=== PATIENT | male | born 1960 | race Caucasian/White ===

== ENCOUNTER 2024-06-07 14:05 | Inpatient (IN) | payer MEDICARE ==
[2024-06-07 14:44] LABS: BASOPHILS PERCENT AUTO 0.2 % (0.2-1.2); EOSINOPHILS PERCENT AUTO 0.1 % (0.0-4.0); HEMATOCRIT 49.8 % (40.0-52.0); HEMOGLOBIN 17.9 g/dL (14.0-18.0); IMMATURE GRAN ABSOLUTE AUTO 0.07 x10^3/uL (0.00-0.07); LYMPHOCYTES ABSOLUTE AUTO 1.2 x10^3/uL (1.0-4.8); LYMPHOCYTES PERCENT AUTO 7.1 % (25.0-50.0); MEAN CORPUSCULAR HGB CONC 35.9 g/dL (32.0-36.0); MEAN CORPUSCULAR VOLUME 91.9 fL (78.0-93.0); MONOCYTES ABSOLUTE AUTO 0.9 x10^3/uL (0.0-0.8); MONOCYTES PERCENT AUTO 5.8 % (2.0-11.0); NEUTROPHILS PERCENT AUTO 86.4 % (50.0-80.0); PLATELET COUNT,PLT 254 x10^3/uL (130-400); RED BLOOD CELL COUNT 5.42 x10^6/uL (4.5-6.0); WHITE BLOOD CELL COUNT,WBC 16.3 x10^3/uL (4.0-10.0)
[2024-06-07 14:46] LABS: APPEARANCE,URINE CLEAR (CLEAR); BILIRUBIN,URINE NEGATIVE (NEGATIVE); COLOR,URINE YELLOW (YELLOW); GLUCOSE,URINE NEGATIVE (NEGATIVE); KETONES,URINE NEGATIVE (NEGATIVE); LEUKOCYTE ESTERASE,URINE NEGATIVE (NEGATIVE); NITRITE,URINE NEGATIVE (NEGATIVE); OCCULT BLOOD,URINE TRACE-LYSED (NEGATIVE); PROTEIN,URINE NEGATIVE (NEGATIVE); UROBILINOGEN,URINE 0.2 EU/dL (0.2)
[2024-06-07 14:47] LABS: BACTERIA,URINE RARE /HPF (NOT SEEN); MUCUS,URINE NOT SEEN /LPF (NOT SEEN); RBC,URINE 0-5 /HPF (NOT SEEN); SQUAMOUS EPITHELIAL CELLS,UR NOT SEEN /HPF (NOT SEEN); WBC,URINE 0-5 /HPF (NOT SEEN)
[2024-06-07 14:57] LABS: A/G RATIO 1.11; ALANINE AMINOTRANSFERASE,ALT 61 U/L (16-63); ALBUMIN 4.1 g/dL (3.4-5.0); ALKALINE PHOSPHATASE 90 U/L (46-116); ASPARTATE AMNIOTRANSFERASE,AST 36 U/L (15-37); BLOOD UREA NITROGEN,BUN 16 mg/dL (7-18); C-REACTIVE PROTEIN 2.19 mg/dL (<=0.50); CALCIUM 9.9 mg/dL (8.5-10.1); CARBON DIOXIDE,CO2 27 mmol/L (21-32); CHLORIDE,CL 100 mmol/L (98-107); CREATININE 1.3 mg/dL (0.70-1.30); GLUCOSE RANDOM 128 mg/dL (70-99); LIPASE 30 U/L (19-71); POTASSIUM,K 4.5 mmol/L (3.5-5.1); PROTEIN TOTAL,TP 7.8 g/dL (6.4-8.2); SODIUM,NA 140 mmol/L (136-145)
[2024-06-07 14:58] LABS: ANION GAP 17.5 mmol/L (5-15); ESTIMATED GFR 62 mL/min (>=60)
[2024-06-07 15:14] LABS: FECAL OCCULT BLOOD INTERP positive (NEGATIVE)
[2024-06-07] MEDS: Morphine 4 MG/ML Syringe IVPUSH ONE ×2 (15:18→18:24)
[2024-06-07] MEDS: Lactated Ringers 1,000 ML IV ONE (15:18)
[2024-06-07] MEDS: Ondansetron 4 MG/2 ML SDV IVPUSH ONE (15:19)
[2024-06-07] MEDS: Iopamidol 612 MG/ML 100 ML Bottle IVPUSH ONE (15:55)
[2024-06-07] MEDS: Pantoprazole 40 MG Vial IVPUSH ONE (17:10)
[2024-06-07] MEDS: Gabapentin 300 MG Cap PO ONE (17:10)
[2024-06-07] MEDS: metroNIDAZOLE/Normal Saline 500 MG in Premix Bag 1 BAG IV ONE (17:28)
[2024-06-07] MEDS: cefTRIAXone 2 GM Vial IVPUSH ONE (17:29)
[2024-06-07] MEDS ORDERED: Naloxone 0.4 MG/ML SDV IVPUSH PRN (18:15)
[2024-06-07] MEDS ORDERED: Ondansetron 4 MG/2 ML SDV IVPUSH PRN (20:09)
[2024-06-07] MEDS ORDERED: Hypromellose 0.3% Ophth Soln 15 ML Bottle EYERT PRN (20:33)
[2024-06-07] MEDS: Latanoprost 0.005% Ophth Soln 2.5 ML Bottle EYEBOTH SCH (21:00)
[2024-06-07] MEDS: Acetaminophen 325 MG Tab PO SCH (21:03)
[2024-06-07] MEDS: Gabapentin 300 MG Cap PO SCH (21:06)
[2024-06-07] MEDS: Cyclobenzaprine 10 MG Tab PO PRN (21:06)
[2024-06-07] MEDS: Timolol Maleate 0.5% Ophth Soln 5 ML Bottle EYEBOTH SCH (21:08)
[2024-06-07] MEDS: Brimonidine 0.2% Ophth Soln 5 ML Bottle EYEBOTH SCH (21:09)
[2024-06-07] MEDS: Lactated Ringers 1,000 ML IV SCH (21:11)
[2024-06-08] MEDS: Morphine 2 MG/ML SYRINGE IVPUSH PRN (01:22)
[2024-06-08] MEDS: metroNIDAZOLE/Normal Saline 500 MG in Premix Bag 1 BAG IV SCH (01:33)
[2024-06-08] MEDS: Sodium Chloride 0.9% 10 ML Syringe FLUSH PRN (06:00)
[2024-06-08] MEDS: Losartan 50 MG Tab PO SCH (08:00)
[2024-06-08 08:10] LABS: BASOPHILS ABSOLUTE AUTO 0.1 x10^3/uL (0.0-0.2); BASOPHILS PERCENT AUTO 0.4 % (0.2-1.2); EOSINOPHILS ABSOLUTE AUTO 0.2 x10^3/uL (0.0-0.5); HEMATOCRIT 45.9 % (40.0-52.0); HEMOGLOBIN 15.8 g/dL (14.0-18.0); IMMATURE GRAN ABSOLUTE AUTO 0.05 x10^3/uL (0.00-0.07); LYMPHOCYTES ABSOLUTE AUTO 1.7 x10^3/uL (1.0-4.8); LYMPHOCYTES PERCENT AUTO 10.3 % (25.0-50.0); MEAN CORPUSCULAR HEMOGLOBIN 32.2 pg (26.0-32.0); MEAN CORPUSCULAR HGB CONC 34.4 g/dL (32.0-36.0); MEAN CORPUSCULAR VOLUME 93.7 fL (78.0-93.0); MONOCYTES ABSOLUTE AUTO 1.2 x10^3/uL (0.0-0.8); MONOCYTES PERCENT AUTO 7.6 % (2.0-11.0); NEUTROPHILS ABSOLUTE AUTO 12.9 x10^3/uL (1.8-7.7); NEUTROPHILS PERCENT AUTO 80.4 % (50.0-80.0); PLATELET COUNT,PLT 218 x10^3/uL (130-400); WHITE BLOOD CELL COUNT,WBC 16.1 x10^3/uL (4.0-10.0)
[2024-06-08 08:13] LABS: CREATININE 1.3 mg/dL (0.70-1.30); EST CRCL DRUG DOSING (CG) 56.27 mL/min; POTASSIUM,K 3.9 mmol/L (3.5-5.1)
[2024-06-08 08:22] LABS: ANION GAP 13.9 mmol/L (5-15)
[2024-06-08] MEDS: Pravastatin 20 MG Tab PO SCH (08:35)
[2024-06-08] MEDS: Pantoprazole 40 MG Vial IVPUSH SCH (08:38)
[2024-06-08] MEDS: TIMOLOL EYEBOTH SCH (10:00)
[2024-06-08] MEDS: BRIMONIDINE TARTRATE EYEBOTH SCH (10:00)
[2024-06-08] MEDS: cefTRIAXone 2 GM Vial IVPUSH SCH (17:32)
[2024-06-08] MEDS: Polyethylene Glycol 3350 Powder 17 GM Packet PO SCH (18:53)
[2024-06-09 06:55] LABS: BASOPHILS ABSOLUTE AUTO 0.1 x10^3/uL (0.0-0.2); BASOPHILS PERCENT AUTO 0.5 % (0.2-1.2); EOSINOPHILS ABSOLUTE AUTO 0.2 x10^3/uL (0.0-0.5); EOSINOPHILS PERCENT AUTO 1.5 % (0.0-4.0); HEMATOCRIT 44.6 % (40.0-52.0); HEMOGLOBIN 15.3 g/dL (14.0-18.0); IMMATURE GRAN ABSOLUTE AUTO 0.07 x10^3/uL (0.00-0.07); LYMPHOCYTES ABSOLUTE AUTO 1.6 x10^3/uL (1.0-4.8); LYMPHOCYTES PERCENT AUTO 10.5 % (25.0-50.0); MEAN CORPUSCULAR HEMOGLOBIN 32.3 pg (26.0-32.0); MEAN CORPUSCULAR HGB CONC 34.3 g/dL (32.0-36.0); MEAN CORPUSCULAR VOLUME 94.3 fL (78.0-93.0); MONOCYTES ABSOLUTE AUTO 1.1 x10^3/uL (0.0-0.8); NEUTROPHILS ABSOLUTE AUTO 12.1 x10^3/uL (1.8-7.7); PLATELET COUNT,PLT 206 x10^3/uL (130-400); RED BLOOD CELL COUNT 4.73 x10^6/uL (4.5-6.0); WHITE BLOOD CELL COUNT,WBC 15.1 x10^3/uL (4.0-10.0)
[2024-06-09 07:14] LABS: A/G RATIO 0.97; ALBUMIN 3.1 g/dL (3.4-5.0); BILIRUBIN TOTAL 1.5 mg/dL (0.2-1.0); CALCIUM 8.7 mg/dL (8.5-10.1); CREATININE 1.1 mg/dL (0.70-1.30); EST CRCL DRUG DOSING (CG) 66.5 mL/min; POTASSIUM,K 3.8 mmol/L (3.5-5.1); PROTEIN TOTAL,TP 6.3 g/dL (6.4-8.2)
[2024-06-09 07:15] LABS: ANION GAP 12.8 mmol/L (5-15)
[2024-06-09] MEDS: methylPREDNISolone Sodium Succinate 40 MG/1 ML SDV IVPUSH SCH (11:26)
[2024-06-09] MEDS: Morphine 4 MG/ML Syringe IVPUSH PRN (11:30)
[2024-06-10 06:47] LABS: BASOPHILS PERCENT AUTO 0.1 % (0.2-1.2); EOSINOPHILS PERCENT AUTO 0.1 % (0.0-4.0); HEMATOCRIT 45.5 % (40.0-52.0); HEMOGLOBIN 15.7 g/dL (14.0-18.0); IMMATURE GRAN ABSOLUTE AUTO 0.08 x10^3/uL (0.00-0.07); LYMPHOCYTES ABSOLUTE AUTO 1.2 x10^3/uL (1.0-4.8); LYMPHOCYTES PERCENT AUTO 6.7 % (25.0-50.0); MEAN CORPUSCULAR HEMOGLOBIN 31.9 pg (26.0-32.0); MEAN CORPUSCULAR HGB CONC 34.5 g/dL (32.0-36.0); MEAN CORPUSCULAR VOLUME 92.5 fL (78.0-93.0); MONOCYTES ABSOLUTE AUTO 0.6 x10^3/uL (0.0-0.8); MONOCYTES PERCENT AUTO 3.4 % (2.0-11.0); NEUTROPHILS ABSOLUTE AUTO 15.7 x10^3/uL (1.8-7.7); NEUTROPHILS PERCENT AUTO 89.2 % (50.0-80.0); PLATELET COUNT,PLT 264 x10^3/uL (130-400); RED BLOOD CELL COUNT 4.92 x10^6/uL (4.5-6.0); WHITE BLOOD CELL COUNT,WBC 17.6 x10^3/uL (4.0-10.0)
[2024-06-10 07:10] LABS: A/G RATIO 0.84; ALBUMIN 3.2 g/dL (3.4-5.0); BILIRUBIN TOTAL 1.2 mg/dL (0.2-1.0); CALCIUM 9.2 mg/dL (8.5-10.1); CREATININE 1.1 mg/dL (0.70-1.30); EST CRCL DRUG DOSING (CG) 66.5 mL/min; POTASSIUM,K 3.7 mmol/L (3.5-5.1)
[2024-06-10 07:11] LABS: ANION GAP 14.7 mmol/L (5-15)
[2024-06-10] MEDS ORDERED: Acetaminophen/HYDROcodone 325-5 MG Tab PO PRN (08:20)
[2024-06-10] MEDS ORDERED: Ondansetron 4 MG Tab.DIS PO PRN (08:26)
[2024-06-10] MEDS: Pantoprazole 40 MG Tab.CR PO SCH (09:23)
[2024-06-10] MEDS ORDERED: Levofloxacin 500 MG Tab PO SCH (13:15)
[2024-06-10] MEDS: predniSONE 20 MG Tab PO SCH (13:31)
[2024-06-10] MEDS: metroNIDAZOLE 500 MG Tab PO SCH (13:31)
[2024-06-11 06:53] LABS: BASOPHILS PERCENT AUTO 0.2 % (0.2-1.2); EOSINOPHILS PERCENT AUTO 0.1 % (0.0-4.0); HEMATOCRIT 41.4 % (40.0-52.0); HEMOGLOBIN 14.4 g/dL (14.0-18.0); IMMATURE GRAN ABSOLUTE AUTO 0.12 x10^3/uL (0.00-0.07); LYMPHOCYTES ABSOLUTE AUTO 2.1 x10^3/uL (1.0-4.8); LYMPHOCYTES PERCENT AUTO 14.1 % (25.0-50.0); MEAN CORPUSCULAR HEMOGLOBIN 32.3 pg (26.0-32.0); MEAN CORPUSCULAR HGB CONC 34.8 g/dL (32.0-36.0); MEAN CORPUSCULAR VOLUME 92.8 fL (78.0-93.0); MONOCYTES PERCENT AUTO 6.6 % (2.0-11.0); NEUTROPHILS ABSOLUTE AUTO 11.7 x10^3/uL (1.8-7.7); NEUTROPHILS PERCENT AUTO 78.2 % (50.0-80.0); PLATELET COUNT,PLT 277 x10^3/uL (130-400); RED BLOOD CELL COUNT 4.46 x10^6/uL (4.5-6.0)
[2024-06-11 07:16] LABS: A/G RATIO 0.94; ALBUMIN 3.1 g/dL (3.4-5.0); BILIRUBIN TOTAL 1.1 mg/dL (0.2-1.0); CALCIUM 8.9 mg/dL (8.5-10.1); CREATININE 1.1 mg/dL (0.70-1.30); EST CRCL DRUG DOSING (CG) 66.5 mL/min; POTASSIUM,K 3.7 mmol/L (3.5-5.1); PROTEIN TOTAL,TP 6.4 g/dL (6.4-8.2)
[2024-06-11 07:17] LABS: ANION GAP 12.7 mmol/L (5-15)
[2024-06-12 06:41] LABS: HEMATOCRIT 42.6 % (40.0-52.0); HEMOGLOBIN 14.7 g/dL (14.0-18.0); MEAN CORPUSCULAR HGB CONC 34.5 g/dL (32.0-36.0); MEAN CORPUSCULAR VOLUME 92.8 fL (78.0-93.0); RED BLOOD CELL COUNT 4.59 x10^6/uL (4.5-6.0); WHITE BLOOD CELL COUNT,WBC 12.3 x10^3/uL (4.0-10.0)
[2024-06-12 10:03] VITALS: BP 138/73; PULSE 70
== END 2024-06-12 09:55 | disposition home or self-care (01) | DRG 372 ==
LOC: VM.ED 14:05 → VM.MS 17:26 → UNDOADMIN 17:26
PROVIDERS: ADMIT Nurse Practitioner Family; ATTEND Nurse Practitioner Family
DX: K52.9 Noninfective gastroenteritis and colitis, unspecified (principal); A04.72 Enterocolitis due to Clostridium difficile, not specified as recurrent; K92.2 Gastrointestinal hemorrhage, unspecified; I10 Essential (primary) hypertension; K21.9 Gastro-esophageal reflux disease without esophagitis; H40.9 Unspecified glaucoma; Z79.82 Long term (current) use of aspirin; G89.29 Other chronic pain; Z68.31 Body mass index [BMI] 31.0-31.9, adult; M25.512 Pain in left shoulder; E78.00 Pure hypercholesterolemia, unspecified; M19.90 Unspecified osteoarthritis, unspecified site; E66.9 Obesity, unspecified; Z96.659 Presence of unspecified artificial knee joint; F15.90 Other stimulant use, unspecified, uncomplicated; K59.00 Constipation, unspecified; Z79.1 Long term (current) use of non-steroidal anti-inflammatories (NSAID); Z79.899 Other long term (current) drug therapy; Z79.02 Long term (current) use of antithrombotics/antiplatelets; Z90.89 Acquired absence of other organs; Z98.890 Other specified postprocedural states; Z87.891 Personal history of nicotine dependence; Z85.820 Personal history of malignant melanoma of skin
CPT/HCPCS: 36415; 74177; 80048; 80053; 81001; 83690; 85025; 85027; 86140; 96361; 96374; 96375; 99284; 99285-25; A9270-GY; G0328; J0696; J1836; J2270; J2405; J2470; J2919; J7120; J7512; Q9967